=== PATIENT | female | born 1960 | race Caucasian/White ===

== ENCOUNTER 2023-12-05 10:32 | Outpatient (AMB) | payer OTHER, SELFPAY ==
[2023-12-05 10:50] VITALS: BP 142/70; PULSE 101; RESP 12; O2SAT 99; BMI 24.1
--- NOTE | 2023-12-05 10:50 | A.OFFPC_ITS ---
Vital Signs 12/05/23 10:50 Height 5 ft 5 in Weight 145 lb BMI 24.1 BP 142/70 H Blood Pressure Location Rt brachial Position Sitting Respiration 12 Pulse 101 H Pulse Source Pulse Oximeter Pulse Oximetry (%) 99 Oxygen Delivery Method Room Air Intake Visit Reasons: latrice from [place] / shoulder issues Intake Note: Patient is here to transfer cfre from [facility] [place] [facility] [place] Cao. Patient has a concern for R shoulder pain, tingling sensation and additional concern for spinal decompression. Vb Net Developer Required: No Accompanied by: Self / Same As Patient Allergies No Known Allergies Allergy (Verified 12/05/23 08:15) Medication List - Last Reconciled 12/05/23 by Carly Cao MD famotidine (Pepcid AC) 20 mg PO BID gabapentin 300 mg PO QID ibuprofen 200 mg PO Q6H PRN oxycodone 5 mg PO Q8H PRN venlafaxine ER 37.5 mg PO DAILY Tobacco use date assessed: 12/05/23 Dental Screening Dental Screen Date: 12/05/23 Did you have a dental visit in the last 12 months?: No Did you have a dental problem in the last 6 months where you did not have access to dental care?: No Was dental information given to patient?: Yes HPI HPI Comments History of Present Illness Details 63 year old female with a past medical h istory of chronic back pain, DEYA previously on CPAP, anxiety and depression, nutcracker esophagus status post POEM in 2013, GERD presenting to reestablish care. Chronic pain: History of spinal fusion 2015, cervical decompression 2014-Dr Edwards. On gabapentin 300mg-2 tab (600mg) three times a day, glucosamin/chondroitin. For the past few months having severe left neck pain with radiation down the shoulder into the arm and down the left scapula. Gets numb. Has been dropping items, feels weak. Gabapentin not effective GERD/nutcracker esophagus-History of PEOM in 2013. Hiatal hernia. On famotidine 20mg twice daily DEYA-On cpap-compliant Anxiety/depression: Night sweats. 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 Says flora saavedra ROS see HPI PHYSICAL EXAM: GENERAL: Alert and oriented x 3. NAD EYES: EOMI. Anicteric. HENT: Moist mucous membranes. No scleral icterus. No cervical lymphadenopathy. LUNGS: Clear to auscultation bilaterally. CARDIOVASCULAR: Regular rate and rhythm. No murmur. No JVD. ABDOMEN: Soft, non-tender +bs EXTREMITIES: No edema. Non-tender. MSK: Left posterior neck spasm. Shoulder shrug elicits left superior trapezius and neck pain. Decreased left grasp strength SKIN: No rashes or lesions. Warm. NEUROLOGIC: No focal neurological deficits. CN II-XII grossly intact PSYCHIATRIC: Cooperative. 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 Somnolence DEYA (obstructive sleep apnea) Moderate somatic symptom disorder GERD (gastroesophageal reflux disease) History of esophageal spasm DDD (degenerative disc disease), lumbar Depression Anxiety Surgical History History of lumbar laminectomy for spinal cord decompression H/O excision of lamina of cervical vertebra for decompression of spinal cord History of cervical discectomy History of lumbar spinal fusion Family History Mother Heart attack Father Diabetes Sister Multiple sclerosis Maternal Grandmother Diabetes Social History Household Members: None Housing: House Are you a primary childcare center administrator to a significant other at home: No Do you presently have visiting nurse or other home services: No 75 years or older and lives alone: No Alcohol intake: current Alcohol intake frequency: 0-2 drinks per day Alcohol type: wine Patient Tobacco Use Status: Never used Tobacco e-Cigarette/Vaping Use: Never Used Substance Use Type: Marijuana service: No Current occupational status: employed 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 1. Little interest or pleasure in doing things: nearly every day 2. Feeling down, depressed, or hopeless: several days 3. Trouble falling or staying asleep, or sleeping too much: more than half the days 4. Feeling tired or having little energy: more than half the days 5. Poor appetite or overeating: not at all 6. Feeling bad about yourself - or that you are a failure or have let yourself or your family down: nearly every day 7. Trouble concentrating on things, such as reading the newspaper or watching television: not at all 8. Moving or speaking so slowly that other people could have noticed. Or the opposite - being so fidgety or restless that you have been moving around a lot more than usual: several days 9. Thoughts that you would be better off or of hurting yourself in some way: not at all Total score: 12 Depression Screening Interpretation: Positive (continues medication) Depression Screening Follow-up: Existing condition Depression Screening Done: Yes 33697 - PHQ-9 Billing: Yes Source: Developed by Drs. Chintan Lima, Sandhya Young, Familia Armstrong and colleagues, with an educational donato from [employer]. Thrive Questionnaire Date Thrive assessed: 12/05/23 I am a: Patient What is your living situation today?: I have a steady place to live Within the past 12 months, did the food you bought not last and you didn't have the money to get more?: Never true Within the past 12 months, did you worry whether your food would run out before you got money to buy more?: Never true Do you have trouble paying for medicines?: No Do you have trouble getting transportation to medical appointments?: No Do you have trouble paying your heating and electricity bill?: No Do you have trouble taking care of your child, family member or friend?: No Do you have trouble with day-to-day activities such as bathing, preparing meals, shopping, managing finances, etc.?: No Are you currently unemployed and looking for a job?: No Are you interested in more education?: No Please select the resources that you would like help with: None Currently or been in a relationship where the following occur: No concerns reported THRIVE Score: 0 AUDIT C Alcohol Use Questionnaire (AUDIT-C) 1. How often do you have a drink containing alcohol?: 2-3 times a week 2. How many drinks containing alcohol do you have on a typical day when you are drinking?: 1 or 2 3. How often do you have six or more drinks on one occasion?: Never Total Score: 3 SELWYN-7 AMB Questionnaire SELWYN-7 Date SELWYN - 7 assessed: 12/05/23 Feeling nervous, anxious, or on edge: 2 = More than half the days Not being able to stop or control worryin = More than half the days Worrying too much about different things: 3 = Nearly every day Trouble relaxin = More than half the days Being so restless that it is hard to sit still: 0 = Not at all Becoming easily annoyed or irritable: 0 = Not at all Feeling afraid as if something awful might happen: 0 = Not at all Total SELWYN-7 score (0-4 normal; 5-9 mild; 10-14 moderate; 15-21 severe): 9 Source: Developed by Drs. Chintan Lima, Sandhya Young, Familia Armstrong and colleagues, with an educational donato from [employer]. SELWYN-7 Assessment Billing SELWYN-7 Assessment Tool: SELWYN-7 Assessment 44047 Physical exam (Primary Care) Vital Signs: Last Vital Signs Pulse 101 H 12/05/23 10:50 Resp 12 12/05/23 10:50 BP 142/70 H 12/05/23 10:50 Pulse Ox 99 12/05/23 10:50 Oxygen Delivery Method Room Air 12/05/23 10:50 BMI result Body Mass Index 24.1 Tobacco/Smoking Status: Tobacco use Status Tobacco use date assessed 12/05/23 12/05/23 11:08 Patient Tobacco Use Status Never used Tobacco 12/05/23 11:08 e-Cigarette/Vaping Use Never Used 12/05/23 11:08 PHQ-9: PHQ-9 Score PHQ-9: Total score 12 12/05/23 11:08 Depression Screening Interpretation: Positive (continues medication) Depression Screening Follow-up: Existing condition Thrive Assessment: Date of Thrive Assessment Date Thrive assessed 12/05/23 12/05/23 11:08 Currently or been in a relationship where the following occur: No concerns reported Assessment and Plan Assessment & Plan (1) Cervical myelopathy: Code(s): G95.9 - Disease of spinal cord, unspecified Plan: Left neck, shoulder, arm numbness, pain and weakness History of cervical discectomy MRI ordered. Referred to physiatry, neurosurgery (2) History of cervical discectomy: Code(s): Z98.890 - Other specified postprocedural states Orders: Orders MR cervical spine w con Today G95.9 - Disease of spinal cord, unspecified, Z98.890 - Other specified postprocedural states Referrals Physiatry Referral M54.12 - Radiculopathy, cervical region, R29.898 - Other symptoms and signs involving the musculoskeletal system, Z98.890 - Other specified postprocedural states Neurosurgery Referral M54.12 - Radiculopathy, cervical region, R29.898 - Other symptoms and signs involving the musculoskeletal system, Z98.890 - Other specified postprocedural states Medications: New famotidine (Pepcid AC) 20 mg PO BID 180 tabs 3RF venlafaxine ER 37.5 mg PO DAILY 90 caps 3RF oxycodone Partial Fill upon patient request. 5 mg PO Q8H PRN 84 tabs 0RF pain Coding Level of Care Code Est Pt Level 5 (91942) Complex EM visit Add On G2211 Diagnoses Cervical myelopathy G95.9 History of cervical discectomy Z98.890 Additional Codes SELWYN-7 Assessment Billing - SELWYN-7 Assessment Tool: SELWYN-7 Assessment 18875 ([id number])
== END 2023-12-05 12:05 | disposition home or self-care (01) ==
PROVIDERS: PCP Internal Medicine; Visit Provider Internal Medicine
DX: G95.9 Disease of spinal cord, unspecified (principal); Z98.890 Other specified postprocedural states
CPT/HCPCS: 99213

== ENCOUNTER → 2024-02-04 15:07 | Outpatient (BNV) | payer OTHER, SELFPAY | PROVIDERS: PCP Internal Medicine; Visit Provider Radiology Diagnostic Radiology | DX: G95.9 Disease of spinal cord, unspecified (principal) | CPT/HCPCS: 72156 ==

== ENCOUNTER 2024-02-04 15:09 | Outpatient (REF) | payer OTHER, SELFPAY ==
--- NOTE | ~2024-02-04 | MR_ITS ---
EXAMINATION: MR CERVICAL SPINE WITH AND WITHOUT CONTRAST CLINICAL INFORMATION: Pain, numbness, tingling right greater than left upper extremities, neck pain, history of decompression in 2016. COMPARISON: No prior available. TECHNIQUE: Multiplanar multisequence MR imaging of the cervical spine was done prior to and after the administration 6.5 mL Gadavist IV gadolinium. Examination was performed on a 1.5 Idalia Siemens unit, using standard sequences. FINDINGS: CORONAL ALIGNMENT: -Normal SAGITTAL ALIGNMENT: -Mild straightening of the upper lordosis spanning C3-C6. -Trace degenerative anterolisthesis C3 on C4. -Trace degenerative retrolisthesis C5 on C6. CRANIOCERVICAL JUNCTION/C1-2 ARTICULATIONS: -Intact and aligned with mild to moderate arthritis. VERTEBRAL BODIES/BONE MARROW: -There has been a prior anterior fusion and discectomy of C4-5 with oblique interbody screws and disc prosthesis. Hardware creates localized susceptibility artifact obscuring immediately adjacent soft tissue and bone. -No gross bone marrow edema identified. No suspicious marrow abnormalities. DISCS: -Severe loss of disc height and signal at C5-6. Disc prosthesis C4-5. Mild loss of disc height and signal C2-3, C3-4, and C6-7. -Normal discs inferior to C7. CERVICAL CORD: -Normal in signal throughout. No abnormal intra or extradural enhancement present. Mild indentations on the cord ventrally at C3-4, and possible mild impingement at C5-6, discussed below. No associated cord signal abnormality. PARAVERTEBRAL SOFT TISSUES: -Normal prevertebral and paravertebral soft tissues. VISUALIZED INTRACRANIAL STRUCTURES: -No abnormal enhancement. -Mild nonspecific T2 hyperintensity within the central juaquin and superior medulla, nonspecific, likely related to small vessel ischemic changes.. AXIAL DISC SPACE IMAGING: C2-C3: Mild hypertrophic left facet changes. No central canal stenosis and no significant neural foraminal stenosis. C3-C4: There is a diffuse bulging disc present concentrically with a superimposed central disc protrusion with annular fissuring. (Series 10, image 10). This indents upon the ventral thecal sac, minimally indents upon the ventral cord, however there is preserved CSF space posterior and lateral to the cord. No cord signal abnormality. Mild facet and mild uncinate hypertrophy contributes to mild bilateral neural foraminal narrowing. C4-C5: Prior partial discectomy and disc prosthesis placement. There is a disc osteophytic ridge complex present, residual or possibly recurrent, with more prominent disc osteophytic bulging in the bilateral far lateral and foraminal zones. There is trace flattening of the ventral left cord. There is a thin sliver of CSF remaining posterior and lateral to the cord. No definite cord signal abnormalities. Mild hypertrophic facet changes present bilaterally, moderate uncinate spurring bilaterally, with the combination of findings resulting in mild/moderate central canal stenosis, mild to moderate left lateral recess stenosis, and severe bilateral neural foraminal stenosis. C5-C6: Shallow diffuse concentric bulging disc which is contiguous with moderate to severe bilateral uncinate spurs. There is posterior ligamentous thickening, and mild bilateral hypertrophic facet change, with the combination is resulting in mild cord flattening both ventrally and dorsally, with minimal impingement. No signal abnormality or enhancement. Mild lateral recess narrowing bilaterally. Moderate central canal narrowing. Severe bilateral neural foraminal narrowing. C6-C7: Diffuse disc bulging is present slightly asymmetric to the left, and extending into the left greater than right foraminal zones. Mild hypertrophic facet changes are present with prominent bilateral uncinate spurring. There is no mass effect upon the cervical cord. There is mild central canal stenosis, mild left lateral recess stenosis, and severe bilateral neural foraminal stenosis left greater than right. C7-T1: Mild degenerative facet changes are present, however there is no significant central canal or lateral recess narrowing. There is mild to moderate left and mild right neural foraminal narrowing. MR/MR cervical spine wo/w con IMPRESSION: 1. ACDF C3-4, with only minimal residual flattening of the left ventral aspect of the cord at this level, although there is bilateral severe neural foraminal stenosis. 2. Central disc protrusion at C3-4, minimally indents upon the ventral aspect of the cord without cord signal abnormality or abnormal enhancement. 3. C5-6 demonstrates mild cord impingement with flattening both ventrally and dorsally, however cord signal abnormality is evident. There is severe bilateral neural foraminal stenosis. 4. At C6-7, no significant central canal stenosis although there is severe left greater than right neural foraminal stenosis. 5. No abnormal intra or extra medullary enhancement. 6. Additional ancillary findings as discussed in the body of the report. See above for details. Electronically signed by: Joss Cartagena MD 03/08/2024 11:00 AM EST JUAN JOSE
[2024-02-04] MEDS: gadobutroL 7.5 ML VIAL IVPUSH (15:43)
== END 2024-02-04 15:10 | disposition home or self-care (01) ==
LOC: HO.MRI 15:09
PROVIDERS: PCP Internal Medicine; Visit Provider Internal Medicine
DX: G95.9 Disease of spinal cord, unspecified (principal); R29.898 Other symptoms and signs involving the musculoskeletal system; M54.12 Radiculopathy, cervical region; Z98.890 Other specified postprocedural states
CPT/HCPCS: 72156; A9585

== ENCOUNTER 2024-06-11 15:56 | Outpatient (AMB) | payer OTHER, SELFPAY ==
--- NOTE | 2024-06-11 15:58 | MHC.PC.OV ---
Vital Signs 06/11/24 16:05 Height 5 ft 5 in Weight 147 lb 2 oz BMI 24.5 BP 150/70 H Blood Pressure Location Rt brachial Position Sitting Respiration 14 Pulse 95 Pulse Source Pulse Oximeter Temp 98.3 F Temp Source Oral Pulse Oximetry (%) 95 Oxygen Delivery Method Room Air Intake Visit Reasons: 6 month annual Intake Note: recent spinal surgey pt would like to follow up on with pcp annual exam Chief Recordist Required: No Is last menstrual period known: No Post menopausal: Yes Patient : No Allergies No Known Allergies Allergy (Verified 06/11/24 16:00) Medication List - Last Reconciled 06/12/24 by Carly Cao MD famotidine (Pepcid AC) 20 mg PO BID gabapentin 600 mg (2 x 300 mg) PO TID ibuprofen 200 mg PO Q6H PRN oxycodone 5 mg PO Q8H PRN 28 days venlafaxine ER 75 mg PO DAILY Tobacco use date assessed: 06/11/24 Fall risk assessment: No Falls in past year Last assessed Fall Risk: 06/11/24 Dental Screening Dental Screen Date: 06/11/24 Did you have a dental visit in the last 12 months?: No Did you have a dental problem in the last 6 months where you did not have access to dental care?: No HPI HPI Comments History of Present Illness Details 63 year old female with a past medical history of chronic back pain, DEYA previously on CPAP, anxiety and depression, nutcracker esophagus status post POEM in 2013, GERD presenting for physical eam Chronic pain: History of spinal fusion 2015, cervical decompression 2014-Dr Edwards and Apr 2024. On gabapentin 300mg-2 tab (600mg) three times a day, glucosamin/chondroitin. For the past few months having severe left neck pain with radiation down the shoulder into the arm and down the left scapula-90% improvement. Left hip pain GERD/nutcracker esophagus-History of PEOM in 2013. Hiatal hernia. On famotidine 20mg twice daily. Considering fundoplication. Previously discussed with Dr Kyle. She would like to see him again. She is due for colonoscopy but refuses. Will do cologuard. DEYA-On cpap-compliant Anxiety/depression: Night sweats. Doing well on venlafaxine but would like to increase dosing Colonoscopy-due Follows with certified prosthetist vice president. Says flora CRUZ see HPI PHYSICAL EXAM: GENERAL: Alert and oriented x 3. NAD EYES: EOMI. Anicteric. HENT: Moist mucous membranes. No scleral icterus. No cervical lymphadenopathy. LUNGS: Clear to auscultation bilaterally. CARDIOVASCULAR: Regular rate and rhythm. No murmur. No JVD. ABDOMEN: Soft, non-tender +bs EXTREMITIES: No edema. Non-tender. MSK: Left posterior neck spasm. Shoulder shrug elicits left superior trapezius and neck pain. Decreased left grasp strength SKIN: No rashes or lesions. Warm. NEUROLOGIC: No focal neurological deficits. CN II-XII grossly intact PSYCHIATRIC: Cooperative. 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 Somnolence DEYA (obstructive sleep apnea) Moderate somatic symptom disorder GERD (gastroesophageal reflux disease) History of esophageal spasm DDD (degenerative disc disease), lumbar Depression Anxiety Surgical History History of lumbar laminectomy for spinal cord decompression H/O excision of lamina of cervical vertebra for decompression of spinal cord History of cervical discectomy History of lumbar spinal fusion Family History Mother Heart attack Father Diabetes Sister Multiple sclerosis Maternal Grandmother Diabetes Social History Household Members: None Housing: House Are you a primary career development consultant to a significant other at home: No Do you presently have visiting nurse or other home services: No 75 years or older and lives alone: No Alcohol intake: current Alcohol intake frequency: 0-2 drinks per day Alcohol type: wine Patient Tobacco Use Status: Never used Tobacco e-Cigarette/Vaping Use: Never Used Substance Use Type: Marijuana service: No Current occupational status: employed 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 1. Little interest or pleasure in doing things: more than half the days 2. Feeling down, depressed, or hopeless: more than half the days 3. Trouble falling or staying asleep, or sleeping too much: nearly every day 4. Feeling tired or having little energy: more than half the days 5. Poor appetite or overeating: nearly every day 6. Feeling bad about yourself - or that you are a failure or have let yourself or your family down: several days 7. Trouble concentrating on things, such as reading the newspaper or watching television: several days 8. Moving or speaking so slowly that other people could have noticed. Or the opposite - being so fidgety or restless that you have been moving around a lot more than usual: more than half the days 9. Thoughts that you would be better off or of hurting yourself in some way: not at all Total score: 16 Depression Screening Interpretation: Positive Depression Screening Follow-up: Existing condition and Change in Medication Depression Screening Done: Yes 76865 - PHQ-9 Billing: Yes Source: Developed by Drs. Chintan Lima, Sandhya Young, Familia Armstrong and colleagues, with an educational donato from [employer] (acquired by [employer] in 2014). Thrive Questionnaire Date Thrive assessed: 06/11/24 I am a: Patient What is your living situation today?: I have a steady place to live Within the past 12 months, did the food you bought not last and you didn't have the money to get more?: Never true Within the past 12 months, did you worry whether your food would run out before you got money to buy more?: Never true Do you have trouble paying for medicines?: No Do you have trouble getting transportation to medical appointments?: No Do you have trouble paying your heating and electricity bill?: No Do you have trouble taking care of your child, family member or friend?: No Do you have trouble with day-to-day activities such as bathing, preparing meals, shopping, managing finances, etc.?: No Are you currently unemployed and looking for a job?: No Are you interested in more education?: No Please select the resources that you would like help with: None Currently or been in a relationship where the following occur: No concerns reported THRIVE Score: 0 AUDIT C Alcohol Use Questionnaire (AUDIT-C) 1. How often do you have a drink containing alcohol?: 2-3 times a week 2. How many drinks containing alcohol do you have on a typical day when you are drinking?: 1 or 2 3. How often do you have six or more drinks on one occasion?: Never Total Score: 3 Score Reviewed/Action Taken: Yes SELWYN-7 AMB Questionnaire SELWYN-7 Date SELWYN - 7 assessed: 06/11/24 Feeling nervous, anxious, or on edge: 3 = Nearly every day Not being able to stop or control worryin = More than half the days Worrying too much about different things: 2 = More than half the days Trouble relaxin = More than half the days Being so restless that it is hard to sit still: 2 = More than half the days Becoming easily annoyed or irritable: 2 = More than half the days Feeling afraid as if something awful might happen: 2 = More than half the days Total SELWYN-7 score (0-4 normal; 5-9 mild; 10-14 moderate; 15-21 severe): 15 Source: Developed by Drs. Chintan Lima, Sandhya Young, Familia Armstrong and colleagues, with an educational donato from [employer] (acquired by [employer] in 2014). SELWYN-7 Assessment Billing SELWYN-7 Assessment Tool: SELWYN-7 Assessment 89366 Physical exam (Primary Care) Vital Signs: Last Vital Signs Temp 98.3 F 06/11/24 16:05 Pulse 95 06/11/24 16:05 Resp 14 06/11/24 16:05 BP 150/70 H 06/11/24 16:05 Pulse Ox 95 06/11/24 16:05 Oxygen Delivery Method Room Air 06/11/24 16:05 BMI result Body Mass Index 24.5 Tobacco/Smoking Status: Tobacco use Status Tobacco use date assessed 06/11/24 06/11/24 16:08 Patient Tobacco Use Status Never used Tobacco 06/11/24 16:08 e-Cigarette/Vaping Use Never Used 06/11/24 16:08 PHQ-9: PHQ-9 Score PHQ-9: Total score 16 06/11/24 16:33 Depression Screening Interpretation: Positive Depression Screening Follow-up: Existing condition and Change in Medication Thrive Assessment: Date of Thrive Assessment Date Thrive assessed 06/11/24 06/11/24 16:08 Currently or been in a relationship where the following occur: No concerns reported Coding Level of Care Code Est Pt Prev Care 40-64y(71103) Diagnoses Physical exam Z00.00 Cervical myelopathy G95.9 Hiatal hernia K44.9 Additional Codes SELWYN-7 Assessment Billing - SELWYN-7 Assessment Tool: SELWYN-7 Assessment 14809 ([id number]) PHQ-9 - 80688 - PHQ-9 Billing: Yes ([id number]) Assessment & Plan Assessment & Plan (1) Physical exam: Code(s): Z00.00 - Encounter for general adult medical examination without abnormal findings (2) Cervical myelopathy: Code(s): G95.9 - Disease of spinal cord, unspecified Category: Medical (3) Hiatal hernia: Code(s): K44.9 - Diaphragmatic hernia without obstruction or gangrene Category: Medical Plan 64 y/o for physical exam. Interval history, chronic medical conditions, medications reviewed. Due for labs. Left hip xray ordered. Increase GERD, gastritis-referred back to GI Orders: Orders Lipid Panel 06/11/24 G95.9 - Disease of spinal cord, unspecified, Z13.228 - Encounter for screening for other metabolic disorders, Z98.890 - Other specified postprocedural states TSH reflex Free T4 06/11/24 G95.9 - Disease of spinal cord, unspecified, Z13.228 - Encounter for screening for other metabolic disorders, Z98.890 - Other specified postprocedural states XR hip LT min 2V 06/11/24 M25.552 - Pain in left hip Complete Blood Count Auto Diff 06/11/24 G95.9 - Disease of spinal cord, unspecified, Z13.228 - Encounter for screening for other metabolic disorders, Z98.890 - Other specified postprocedural states Comprehensive Met. Panel 06/11/24 G95.9 - Disease of spinal cord, unspecified, Z13.228 - Encounter for screening for other metabolic disorders, Z98.890 - Other specified postprocedural states Referrals Cologuard Test Z12.11 - Encounter for screening for malignant neoplasm of colon, Z12.12 - Encounter for screening for malignant neoplasm of rectum Gastroenterology Referral K44.9 - Diaphragmatic hernia without obstruction or gangrene Orthopedics Referral M25.552 - Pain in left hip Medications: New venlafaxine ER 75 mg PO DAILY 90 caps 3RF Discontinued venlafaxine ER Discontinued Reason: Doctor's Order 37.5 mg PO DAILY 90 caps 3RF
[2024-06-11 16:05] VITALS: BP 150/70; PULSE 95; RESP 14; TEMP 36.8; O2SAT 95; BMI 24.5
--- OUTSIDE RECORDS SUMMARY | 2024-06-11 16:37 | XMS_ITS | Continuity of Care Document ---
Author Organization [facility] Address [address] [place] [address] [address]asha, [address] [place] [address]- Care Team Providers Care Radio Survey Worker Name Role Phone Nash AVILA, Carly Gregg Primary Care Physician [phone] Encounter [facility] Date(s): 05/10/24 - 05/17/24 [facility] [address] [place] [address] Drive [address] [place], [place] [address] Attending Physician: Kalpesh Biggs MD Referring Physician: Carly Cao MD Encounter Type: Office Visit Allergies, Adverse Reactions, Alerts No Known Allergies Immunizations Given and Recorded Vaccine Date Status Refusal Reason influenza virus vaccine, inactivated 02/20/21 Colt rded influenza virus vaccine, inactivated 02/18/20 Colt rded influenza virus vaccine, inactivated 03/03/19 Colt rded influenza virus vaccine, inactivated 01/23/18 Give n influenza virus vaccine, inactivated 1 04/18/17 Gi ahsan influenza virus vaccine, inactivated 03/25/16 Colt rded influenza virus vaccine, inactivated 03/12/13 Colt rded influenza virus vaccine, inactivated 01/16/12 Colt rded influenza virus vaccine, inactivated 01/11/11 Colt rded influenza virus vaccine, inactivated 02/12/08 Colt rded SARS-CoV-2 (COVID-19) mRNA BNT-162b2 vac 02/06/21 Recorded SARS-CoV-2 (COVID-19) mRNA BNT-162b2 vac 06/30/20 Recorded SARS-CoV-2 (COVID-19) mRNA BNT-162b2 vac 06/09/20 Recorded pneumococcal 23-valent vaccine 07/24/19 Given zoster vaccine, inactivated 09/06/18 Recorded zoster vaccine, inactivated 03/31/18 Recorded tetanus/diphtheria/pertussis, acel(Tdap) 04/18/17 Given tetanus/diphtheria/pertussis, acel(Tdap) 10/08/07 Recorded 1Result Comment: [facility]:[id number] Medications famotidine 20 mg oral tablet 1, tablet, By Mouth, 2 times a day, # 180 tablet, Refills 3, Maintenance, 03/13/23 9:06:00 AM EST, Route to Pharmacy Electronically, [facility], 163, cm, 12/31/21 14:27:00 EDT, Height Start Date: 03/13/23 Status: Ordered Quantity: 180.0 Unit: tablet Repeat number: 1 gabapentin 300 mg oral capsule 2, capsule, By Mouth, 3 times a day, # 540 capsule, Refills 2, Maintenance, 06/23/23 11:44:00 AM EST,Route to Pharmacy Electronically, [facility], 163, cm, 12/31/21 14:27:00 EDT, Height Start Date: 06/23/23 Status: Ordered Quantity: 540.0 Unit: capsule Repeat number: 1 oxyCODONE 5 mg oral tablet TAKE 1 TABLET BY MOUTH every 8 hours NEEDED FOR PAIN Start Date: 04/10/24 Status: Ordered Repeat number: 1 oxyCODONE 5 mg oral tablet 5 mg, 1, tablet, By Mouth, Every 6 hours, PRN, # 28 tablet, Refills 0, Tot. Refills 0, Maintenance,as needed for pain, 04/18/24 10:52:00 AM EST, Route to Pharmacy Electronically, [facility], Partial fill upon patient request if the prescription is for a schedule II opioid drug., 165,cm, 04/12/24 10:10:00 EST, Height, 66.6, kg, 04/12/24 10:10:00 EST, Dry Weight Start Date: 04/18/24 Stop Date: 04/25/24 Status: Ordered Quantity: 28.0 Unit: tablet Repeat number: 1 tiZANidine 2 mg oral tablet 2 mg, 1, tablet, By Mouth, Every 8 hours, PRN, # 90 tablet, Refills 0, Tot. Refills 0, Maintenance,as needed for muscle spasm, 04/12/24 3:35:00 PM EST, Route to Pharmacy Electronically, [facility], Partial fill upon patient request if the prescription is for a schedule II opioid drug., 165, cm, 04/12/24 10:10:00 EST, Height, 66.6, kg, 04/12/24 10:10:00 EST, Dry Weight Start Date: 04/12/24 Status: Ordered Quantity: 90.0 Unit: tablet Repeat number: 1 venlafaxine 37.5 mg oral capsule, extended release 1 capsule, By Mouth, Daily, # 90 capsule, 3 Refills, Maintenance, 06/23/23 11:44:00 AM EST, [facility], 163, cm, 12/31/21 14:27:00 EDT, Height Start Date: 06/23/23 Status: Ordered Quantity: 90.0 Unit: capsule Repeat number: 1 Problem List Condition Confirmation Course Effective Dates Status Health St atus Informant Vision loss of left eye Confirmed Active Chest pain Confirmed Active Chronic back pain Confirmed Active DDD (degenerative disc disease), lumbar Confirmed Active Esophageal spasm Confirmed Active Limitation due to disability 1 Confirmed Active Drug or alcohol risk assessment 2 Confirmed Active GERD (gastroesophageal reflux disease) Confirmed Active History of back surgery Confirmed Active Use of opiates for therapeutic purposes Confirmed Active History of medical problems 3 Confirmed Active Anxiety and depression Confirmed Active Neck pain Confirmed Active DEYA (obstructive sleep apnea) Confirmed Active Moderate somatic symptom disorder with predominant pain Confirmed Active Somnolence 4 Confirmed Active 1initial Oswestry Disability Index: 26% ( moderate disability ) on 03/24/17; initial [place]: 12 on 03/24/17 2SOAPP-R: 11 on 03/24/17 3Pain relevant problem list includes: See below 4initial [place]: 12 on 03/24/17 Vital Signs Most recent to oldest [Reference Range]: 1 Height 165 cm (05/10/24 11:30 AM) Weight 66.5 kg (05/10/24 11:30 AM) Body Mass Index [18.5-24.99 kg/m2] 24.43 kg/m2 (05/10/24 11:30 AM) Social History Social History Type Response Smoking Status Former smoker, quit more than 30 days ago; Number of years: 5; entered on: 06/30/21 Sex Sex Representation Female (finding) Patient Care team information Care Team Personnel Name: Carly Cao MD Position: Reference Physician Member Role: PCP Address: [address] [place], [place] [address] Telecom: Name: Liliam Miller RN Position: Ramez MENDES RN Member Role: Primary Care Nurse Care Team Related Persons Name: GEORGE MARTINEZ Name: PT STATES, NONE Name: PAULO HARDY Insurance Providers Guarantor name: FIDEL JASPER [facility] Information #: 1 Payer: [facility] [facility] O Member Number: [id number] Policy Number: NA Group Number: [id number] Health Plan Information #: 2 Payer: [facility] [facility] [facility] [employer] O Member Number: [id number] Policy Number: NA Group Number: NA
--- OUTSIDE RECORDS SUMMARY | 2024-06-11 16:37 | XMS_ITS | Continuity of Care Document ---
Author Organization [facility] Address [address] [place], [place] [address]m[address]ory flanagan, [address] [place] [address]- Care Team Providers Care Cardiology Clinical Consultant Name Role Phone Nash AVILA, Carly Gregg Primary Care Physician Encounter [facility] Date(s): 04/18/24 - 05/18/24 [facility] [address] [place] [address] Drive [address] [place], [place] [address] Encounter Type: Triage Allergies, Adverse Reactions, Alerts No Known Allergies [...] Given tetanus/diphtheria/pertussis, acel(Tdap) 10/08/07 Recorded 1Result Comment: [facility]:[id number] Medications famotidine 20 mg oral [...] 10:52:00 AM EST, Route to Pharmacy Electronically, [facility] 3, Partial fill upon patient request if [...] 3:35:00 PM EST, Route to Pharmacy Electronically, [facility], Partial fill upon patient request if the prescription is for a schedule II opioid drug., 165, cm, 04/12/24 10:10:00 EST, Height, 66.6, kg, 04/12/24 10:10:00 EST, Dry Weight Start Date: 04/12/24 Status: Ordered Quantity: 90.0 Unit: tablet Repeat number: 1 venlafaxine 37.5 mg oral capsule, extended release 1 capsule, By Mouth, Daily, # 90 capsule, 3 Refills, Maintenance, 06/23/23 11:44:00 AM EST, [facility], 163, cm, 12/31/21 14:27:00 [...] ( moderate disability ) on 03/24/17; initial [place]: 12 on 03/24/17 2SOAPP-R: 11 on 03/24/17 3Pain relevant problem list includes: See below 4initial [place]: 12 on 03/24/17 Social History Social History Type Response Smoking Status Former smoker, quit more than 30 days ago; Number of years: 5; entered on: 06/30/21 Sex Sex Representation Female (finding) Patient Care team information Care Team Personnel Name: Carly Cao MD Position: Reference Physician Member Role: PCP Address: [address] [place] [address] Telecom: Name: Liliam Miller RN Position: Ramez MENDES RN Member Role: Primary Care Nurse Care Team Related Persons Name: GEORGE MARTINEZ Name: PT STATES, NONE Name: PAULO HARDY Insurance Providers Guarantor name: FIDEL [facility] Plan Information #: 1 Payer: [employer] Member Number: NA Policy Number: NA Group Number: NA
--- OUTSIDE RECORDS SUMMARY | 2024-06-11 16:37 | XMS_ITS | Continuity of Care Document ---
Author Organization [facility] Address [address] [place], [place] [address]anagan, [address] [place] [address]- Care Team Providers Care Guest Services Attendant Name Role Phone Nash AVILA, Carly Gregg Primary Care Physician Encounter [facility] Date(s): 05/10/24 - 06/09/24 [facility] [address] [place] [address] Drive [address] [place], [place] [address] Attending Physician: Admtr, Ar8 Admitting Physician: Admtr, Ar8 Referring Physician: Admtr, Ar8 Encounter Type: Triage Allergies, Adverse Reactions, Alerts [...] BNT-162b2 vac 06/09/20 Recorded pneumococcal 23-valent vaccine 4/1/20 Given zoster vaccine, inactivated 09/06/18 Recorded zoster vaccine, inactivated 03/31/18 Recorded tetanus/diphtheria/pertussis, acel(Tdap) 04/18/17 Given tetanus/diphtheria/pertussis, acel(Tdap) 10/08/07 Recorded 1Result Comment: [facility]:[id number] Medications famotidine 20 mg oral tablet 1, tablet, By Mouth, 2 times a day, # 180 tablet, Refills 3, Maintenance, 03/13/23 9:06:00 AM EST, Route to Pharmacy Electronically, [facility], 163, cm, 12/31/21 14:27:00 EDT, [...] 10:52:00 AM EST, Route to Pharmacy Electronically, [facility] 3, Partial fill upon patient request if [...] 3:35:00 PM EST, Route to Pharmacy Electronically, [facility], Partial fill upon patient request [...] 3 Refills, Maintenance, 06/23/23 11:44:00 AM EST, [facility], 163, cm, 12/31/21 14:27:00 EDT, [...] ( moderate disability ) on 03/24/17; initial [place]: 12 on 03/24/17 2SOAPP-R: 11 on 03/24/17 3Pain relevant problem list includes: See below 4initial [place]: 12 on 03/24/17 Social History Social History Type Response Smoking Status Former smoker, quit more than 30 days ago; Number of years: 5; entered on: 06/30/21 Sex Sex Representation Female (finding) Patient Care team information Care Team Personnel Name: Carly Cao MD Position: Reference Physician Member Role: PCP Address: [address] [place] [address] Telecom: Name: Liliam Miller RN Position: SHANE MENDES RN Member Role: Primary Care Nurse Care Team Related Persons Name: ANDREAGEORGE HUTCHINSON Name: PT STATES, NONE Name: PAULO HARDY Insurance Providers Guarantor name: FIDEL [facility] Plan Information #: 1 Payer: [employer] Member Number: NA Policy Number: NA Group Number: NA
== END 2024-06-11 16:50 | disposition home or self-care (01) ==
PROVIDERS: PCP Internal Medicine; Visit Provider Internal Medicine
DX: Z00.00 Encounter for general adult medical examination without abnormal findings (principal); G95.9 Disease of spinal cord, unspecified; K44.9 Diaphragmatic hernia without obstruction or gangrene

== ENCOUNTER → 2024-06-11 15:56 | Outpatient (BNVA) | payer OTHER, SELFPAY | PROVIDERS: PCP Internal Medicine; Visit Provider Internal Medicine | DX: Z00.00 Encounter for general adult medical examination without abnormal findings (principal); G95.9 Disease of spinal cord, unspecified; K44.9 Diaphragmatic hernia without obstruction or gangrene; G47.33 Obstructive sleep apnea (adult) (pediatric); F41.9 Anxiety disorder, unspecified; F32.A Depression, unspecified; Z79.899 Other long term (current) drug therapy; Z99.89 Dependence on other enabling machines and devices | CPT/HCPCS: 96127 ==

== ENCOUNTER 2024-11-18 13:59 | Outpatient (AMB) | payer OTHER, SELFPAY ==
--- NOTE | 2024-11-18 14:08 | MHC.PC.OV ---
Vital Signs 11/18/24 14:13 11/18/24 14:20 Height 5 ft 5 in Weight 144 lb 8 oz BMI 24.0 BP 144/84 H 146/90 H Blood Pressure Location Lt brachial Lt brachial Position Sitting Sitting Respiration 14 Pulse 85 Pulse Source Pulse Oximeter Temp 99.1 F Temp Source Oral Pulse Oximetry (%) 98 Oxygen Delivery Method Room Air Intake Visit Reasons: f/u hip / blood pressure, resched Intake Note: Elevated blood pressure. Lower back pain near pelvis. Bilateral leg pain. Needs refill on famatodine 20 [employer] Required: No Allergies No Known Allergies Allergy (Verified 11/18/24 14:11) Tobacco use date assessed: 11/18/24 Fall risk assessment: No Falls in past year Last assessed Fall Risk: 11/18/24 Dental Screening Dental Screen Date: 06/11/24 HPI HPI Comments History of Present Illness Details 63 year old female with a past medical history of chronic back pain, DEYA previously on CPAP, anxiety and depression, nutcracker esophagus status post POEM in 2013, GERD presenting for follow up Chronic pain: History of spinal fusion 2015, cervical decompression 2014-Dr Edwards and Apr 2024. On gabapentin 300mg-2 tab (600mg) three times a day, glucosamin/chondroitin. left neck pain with radiation down the shoulder into the arm and down the left scapula. Left hip pain-referred to orthopedics. GERD/nutcracker esophagus-History of PEOM in 2013. Hiatal hernia. On famotidine 20mg twice daily. Considering fundoplication. Previously discussed with Dr Kyle. She would like to see him again. She is due for colonoscopy but refuses. Will do cologuard. Saw Dr Charles-waiting ph Bey & EGD and manometry. DEYA-On cpap-compliant Anxiety/depression: Night sweats improvied on increased venlafaxine dose Colonoscopy-seeing GI Follows with sales and marketing vice president. Says flora saavedra ROS see HPI PHYSICAL EXAM: GENERAL: Alert and oriented x 3. NAD EYES: EOMI. Anicteric. HENT: Moist mucous membranes. No scleral icterus. No cervical lymphadenopathy. LUNGS: Clear to auscultation bilaterally. CARDIOVASCULAR: Regular rate and rhythm. No murmur. No JVD. ABDOMEN: Soft, non-tender +bs EXTREMITIES: No edema. Non-tender. MSK: Left posterior neck spasm. Shoulder shrug elicits left superior trapezius and neck pain. Decreased left grasp strength SKIN: No rashes or lesions. Warm. NEUROLOGIC: No focal neurological deficits. CN II-XII grossly intact PSYCHIATRIC: Cooperative. 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 Somnolence DEYA (obstructive sleep apnea) Moderate somatic symptom disorder GERD (gastroesophageal reflux disease) History of esophageal spasm DDD (degenerative disc disease), lumbar Depression Anxiety Surgical History History of lumbar laminectomy for spinal cord decompression H/O excision of lamina of cervical vertebra for decompression of spinal cord History of cervical discectomy History of lumbar spinal fusion Family History Mother Heart attack Father Diabetes Sister Multiple sclerosis Maternal Grandmother Diabetes Social History Household Members: None Housing: House Are you a primary companion caregiver to a significant other at home: No Do you presently have visiting nurse or other home services: No 75 years or older and lives alone: No Alcohol intake: current Alcohol intake frequency: 0-2 drinks per day Alcohol type: wine Patient Tobacco Use Status: Never used Tobacco e-Cigarette/Vaping Use: Never Used Substance Use Type: Marijuana service: No Current occupational status: employed 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 1. Little interest or pleasure in doing things: more than half the days 2. Feeling down, depressed, or hopeless: more than half the days 3. Trouble falling or staying asleep, or sleeping too much: several days 4. Feeling tired or having little energy: several days 5. Poor appetite or overeating: not at all 6. Feeling bad about yourself - or that you are a failure or have let yourself or your family down: several days 7. Trouble concentrating on things, such as reading the newspaper or watching television: several days 8. Moving or speaking so slowly that other people could have noticed. Or the opposite - being so fidgety or restless that you have been moving around a lot more than usual: not at all 9. Thoughts that you would be better off or of hurting yourself in some way: not at all Total score: 8 Depression Screening Interpretation: Positive Depression Screening Follow-up: Declines treatment Depression Screening Done: Yes 50406 - PHQ-9 Billing: Yes Source: Developed by Drs. Chitnan Lima, Familia Berman and colleagues, with an educational donato from [email or web address]. Thrive Questionnaire Date Thrive assessed: 06/11/24 I am a: Patient What is your living situation today?: I have a steady place to live Within the past 12 months, did the food you bought not last and you didn't have the money to get more?: Never true Within the past 12 months, did you worry whether your food would run out before you got money to buy more?: Never true Do you have trouble paying for medicines?: No Do you have trouble getting transportation to medical appointments?: No Do you have trouble paying your heating and electricity bill?: No Do you have trouble taking care of your child, family member or friend?: No Do you have trouble with day-to-day activities such as bathing, preparing meals, shopping, managing finances, etc.?: No Are you currently unemployed and looking for a job?: No Are you interested in more education?: No Please select the resources that you would like help with: None Currently or been in a relationship where the following occur: No concerns reported THRIVE Score: 0 AUDIT C Alcohol Use Questionnaire (AUDIT-C) 1. How often do you have a drink containing alcohol?: 4 or more times a week 2. How many drinks containing alcohol do you have on a typical day when you are drinking?: 1 or 2 3. How often do you have six or more drinks on one occasion?: Never Total Score: 4 SELWYN-7 AMB Questionnaire SELWYN-7 Date SELWYN - 7 assessed: 06/11/24 Source: Developed by Drs. Chintan Lima, Sandhya Young, Familia Armstrong and colleagues, with an educational donato from [email or web address]. Physical exam (Primary Care) Vital Signs: Last Vital Signs Temp 99.1 F 11/18/24 14:13 Pulse 85 11/18/24 14:13 Resp 14 11/18/24 14:13 BP 146/90 H 11/18/24 14:20 Pulse Ox 98 11/18/24 14:13 Oxygen Delivery Method Room Air 11/18/24 14:13 BMI result Body Mass Index 24.0 Tobacco/Smoking Status: Tobacco use Status Tobacco use date assessed 11/18/24 11/18/24 14:15 Patient Tobacco Use Status Never used Tobacco 11/18/24 14:09 e-Cigarette/Vaping Use Never Used 11/18/24 14:09 PHQ-9: PHQ-9 Score PHQ-9: Total score 8 11/18/24 14:25 Depression Screening Interpretation: Positive Depression Screening Follow-up: Declines treatment Thrive Assessment: Date of Thrive Assessment Date Thrive assessed 06/11/24 11/18/24 14:09 Currently or been in a relationship where the following occur: No concerns reported Coding Level of Care Code Est Pt Level 4 (00590) Complex EM visit Add On G2211 Diagnoses Gastroesophageal reflux disease, unspecified whether esophagitis present K21.9 Esophagitis presence: esophagitis presence not specified Hiatal hernia K44.9 History of cervical discectomy Z98.890 Left hip pain M25.552 Lumbosacral radiculopathy M54.17 Additional Codes PHQ-9 - 01505 - PHQ-9 Billing: Yes ([id number]) Assessment & Plan Assessment & Plan (1) GERD (gastroesophageal reflux disease): Code(s): K21.9 - Gastro-esophageal reflux disease without esophagitis Category: Medical Qualifiers: Esophagitis presence: esophagitis presence not specified Qualified Code(s): K21.9 - Gastro-esophageal reflux disease without esophagitis (2) Hiatal hernia: Code(s): K44.9 - Diaphragmatic hernia without obstruction or gangrene Category: Medical (3) History of cervical discectomy: Code(s): Z98.890 - Other specified postprocedural states Category: Surgical (4) Left hip pain: Code(s): M25.552 - Pain in left hip Category: Medical (5) Lumbosacral radiculopathy: Code(s): M54.17 - Radiculopathy, lumbosacral region Category: Medical Plan 64 year old female presenting for follow up Continue low back, sacral pain. Has xray ordered. added lumbar spine. continue current medications Blood pressure is elevated-start norvasc 5mg daily. Orders: Orders XR lumbar spine 2-3V Today M54.17 - Radiculopathy, lumbosacral region Medications: New amlodipine 5 mg PO DAILY 90 tabs 3RF Refilled oxycodone Partial Fill upon patient request. 5 mg PO Q8H PRN 84 tabs 0RF pain 28 days famotidine (Pepcid AC) 20 mg PO BID 180 tabs 3RF
[2024-11-18 14:13] VITALS: BP 144/84; PULSE 85; RESP 14; TEMP 37.3; O2SAT 98; BMI 24.0
[2024-11-18 14:20] VITALS: BP 146/90
--- OUTSIDE RECORDS SUMMARY | 2024-11-18 14:43 | XMS_ITS | Clinical Summary ---
Author Organization [facility] Address [email or web address] [facility] [address] [place] [phone] Phone Care Team Providers Care Rubber Off Name Role Phone Carly Lin MD Primary Care Provider [phone] Allergies No known active allergies Medications estradiol (ESTRACE) 1 MG tablet Take 1 mg by mouth daily. Active progesterone (PROMETRIUM) 200 mg capsule Take 200 mg by mouth daily. Active sertraline (ZOLOFT) 100 MG tablet Take 100 mg by mouth daily. Active Active Problems No known active problems Social History Tobacco Use Types Packs/Day Years Used Date Smoking Tobacco: Former Education Answer Date Recorded Are you interested in more education? Not on bibi e 08/19/2022 Are you concerned about learning? Not on file 08/19/2022 No 08/19/2022 No 08/19/2022 Digital Access Answer Date Recorded No 09/19/2022 No 09/19/2022 No 09/19/2022 Reliable internet access at home? Not on file 09/19/2022 Device with a working camera? Not on file Comments Unknown Sex and Gender Information Value Date Recorded Sex Assigned at Not on file Legal Sex Female 10:08 AM EDT Gender Identity Not on file Sexual Orientation Not on file Plan of Treatment Health Maintenance Due Date Last Done Comments LIPID PANEL 1960 DEPRESSION SCREENING 1972 SMOKING Hx and SMOKELESS TOBACCO SCREENING 02/02/1973 HEPATITIS C SCREENING 02/02/1978 HIV ONE-TIME SCREENING (18-6 5 YEARS) 02/02/1978 PAP SMEAR 02/02/1981 MAMMOGRAM 2000 COLOGUARD 02/02/2005 COLONOSCOPY 02/02/2005 COLORECTAL CANCER SCREENING 02/02/2005 FIT TEST 02/02/2005 FOBT 02/02/2005 SIGMOIDOSCOPY 02/02/2005 VIRTUAL COLONOSCOPY 02/02/2005 PNEUMOCOCCAL VACCINES (50+ years) (1 of 1 - PCV) 02/02/2010 Adult Td,Tdap Booster 10/07/2017 10/08/2007 COVID-19 VACCINE (3 - 2023-2 5 season) 2023 06/30/2020, 06/09/2020 RSV VACCINE (1 - 1-dose 75+ series) 02/02/2035 ZOSTER VACCINES Completed 09/06/2018, 03/31/2018 HEPATITIS A VACCINES Aged Out No long er eligible based on patient's age to complete this topic HIB VACCINES Aged Out No longer eligi ble based on patient's age to complete this topic MENINGOCOCCAL VACCINES (ACWY) Aged Out No longer eligible based on patient's age to complete this topic MENINGOCOCCAL VACCINES (B) Aged Out N o longer eligible based on patient's age to complete this topic Medical Devices Not on file Insurance [place] [address] [place] [address] [place] [address] [place] [address] PPO [facility] [place] [address] [place] [address] [place] [address] [place] [address] [place] [address] [place] [address] PPO PPO Care Teams Rubber Off Relationship Specialty Start Date End Date Carly Lin MD PCP - General Internal Medicine 08/12/15 Additional Source Comments The information contained in this document represents components of the legal health record. It is not the complete legal health record.[facility]
== END 2024-11-18 16:17 | disposition home or self-care (01) ==
LOC: HO.HMCFM 13:59
PROVIDERS: PCP Internal Medicine; Visit Provider Internal Medicine
DX: K21.9 Gastro-esophageal reflux disease without esophagitis (principal); K44.9 Diaphragmatic hernia without obstruction or gangrene; Z98.890 Other specified postprocedural states; M25.552 Pain in left hip; M54.17 Radiculopathy, lumbosacral region

== ENCOUNTER → 2024-11-18 13:59 | Outpatient (BNVA) | payer OTHER, SELFPAY | PROVIDERS: PCP Internal Medicine; Visit Provider Internal Medicine | DX: K21.9 Gastro-esophageal reflux disease without esophagitis (principal); K44.9 Diaphragmatic hernia without obstruction or gangrene; M25.552 Pain in left hip; M54.17 Radiculopathy, lumbosacral region; R03.0 Elevated blood-pressure reading, without diagnosis of hypertension; F41.8 Other specified anxiety disorders; G47.33 Obstructive sleep apnea (adult) (pediatric); Z79.899 Other long term (current) drug therapy; Z99.89 Dependence on other enabling machines and devices; Z98.1 Arthrodesis status; Z13.31 Encounter for screening for depression | CPT/HCPCS: 96127 ==

== ENCOUNTER 2024-11-19 15:41 | Outpatient (REF) | payer OTHER, SELFPAY ==
--- NOTE | ~2024-11-19 | XR_ITS ---
EXAMINATION: XR LUMBOSACRAL SPINE CLINICAL INFORMATION: M54.17 - Radiculopathy, lumbosacral region COMPARISON: None available. TECHNIQUE: Three views of the lumbosacral spine. FINDINGS: There is mild wedging of T12 and L1. There are 5 nonrib-bearing lumbar segments. L2-3 demonstrates subtle retrolisthesis and mild disc space narrowing. L3-4 demonstrates mild space narrowing and minimal anterolisthesis. L4-5 there is trace posterior pedicle screws and rods with mild anterolisthesis. XR/XR lumbar spine 2-3V IMPRESSION: Mild wedging of T12 and L1 is probably physiologic in nature. Correlate for history of trauma or pain in this region. Posterior lumbar interbody fusion at L4-5. Multilevel degenerative changes. Electronically signed by: Shaun Maldonado MD 11/19/2024 04:47 PM EDT
[2024-11-19 15:52] LABS: MANUAL DIFF FLAG NO
[2024-11-19 16:23] LABS: Hematocrit 38.7 % (37.0-47.0); Hemoglobin 13.5 g/dl (12.0-16.0); Imm Gran Abs Auto 0.02 X10*3/uL (0.00-0.03); Imm Gran Pct Auto 0.3 % (0.0-0.4); Lymphocytes Absolute Auto 1.9 X10*3/uL (1.2-4.9); Mean Corpuscular HGB Conc 34.9 g/dl (31.0-35.0); Mean Corpuscular Hemoglobin 33.4 pg (27.0-33.0); Mean Corpuscular Volume 95.8 fL (80.0-98.0); NRBC Abs Auto 0.000 X10*3/uL (0.0-0.012); NRBC Pct Auto 0.0 /100WBC (0.0-0.2); Platelet Count 253 X10*3/uL (160-400); Red Blood Count 4.04 X10*6/uL (4.20-5.50); White Blood Count 6.5 X10*3/uL (4.8-10.8)
--- OUTSIDE RECORDS SUMMARY | 2024-11-19 16:24 | XMS_ITS | Clinical Summary ---
Author Organization [facility] Address [address] [facility] [address] [place] [phone] Phone Care Team Providers Care Control Tower Operator Name Role Phone Carly Lin MD Primary Care Provider Allergies No known active allergies Medications estradiol [...] Devices Not on file Insurance [place] [address] [place] [address] [place] [address] [place] [address] PPO [facility] [place] [address] [place] [address] [place] [address] [place] [address] [place] [address] [place] [address] PPO PPO Care Teams Control Tower Operator Relationship Specialty Start Date End Date Carly Lin MD PCP - General Internal Medicine 08/12/15 Additional Source Comments The information contained in this document represents components of the legal health record. It is not the complete legal health record.[facility]
[2024-11-19 16:56] LABS: Alanine Aminotransferase 6 U/L (0-31); Albumin Level 4.2 g/dL (3.5-5.0); Alkaline Phosphatase 75 U/L (39-117); Anion Gap 11 (12-20); Aspartate Amino Transferase 17 U/L (5-31); Blood Urea Nitrogen 13 mg/dL (9-16); Calcium 8.8 mg/dL (8.4-10.2); Carbon Dioxide 27 mmol/L (22-29); Chloride 105 mmol/L (96-108); Cholesterol 215 mg/dL (<200); Estimated Glomerular Filt Rate > 60; HDL Cholesterol 71 mg/dL (>40); Potassium 4.3 mmol/L (3.3-5.1); Sodium 139 mmol/L (135-145); Total Protein 6.5 g/dL (6.5-8.0); Triglycerides 73 mg/dL (<150)
== END 2024-11-19 15:42 | disposition home or self-care (01) ==
LOC: HO.XRAY 15:41
PROVIDERS: PCP Internal Medicine; Visit Provider Internal Medicine
DX: Z13.228 Encounter for screening for other metabolic disorders (principal); M54.17 Radiculopathy, lumbosacral region; Z98.890 Other specified postprocedural states; G95.9 Disease of spinal cord, unspecified
CPT/HCPCS: 36415; 72100; 80053; 80061; 84443; 85025

== ENCOUNTER → 2024-11-19 15:54 | Outpatient (BNV) | payer OTHER, SELFPAY | PROVIDERS: PCP Internal Medicine; Visit Provider Radiology Diagnostic Radiology | DX: M54.17 Radiculopathy, lumbosacral region (principal) | CPT/HCPCS: 72100 ==